=== PATIENT | female | born 1935 | race Caucasian/White ===

== ENCOUNTER 2021-07-07 10:39 | Emergency (ER) | payer OTHER ==
[~2021-07-07] VITALS: Ht 160 cm; Wt 51.7 kg
[~2021-07-07 10:39] MED LIST: AVALIDE 150-12.1 TA1 PO; DURICEF500 MG PO; PROCARDIA90 MG/BLIS PO; RELAFEN500 MG PO
== END 2021-07-07 16:25 | disposition home or self-care (01) ==
LOC: ER 10:39
DX: S01.01XA Laceration without foreign body of scalp, initial encounter (principal); W18.30XA Fall on same level, unspecified, initial encounter; Y93.89 Activity, other specified; Y92.121 Bathroom in nursing home as the place of occurrence of the external cause; Z91.013 Allergy to seafood

== ENCOUNTER 2021-09-29 23:43 | Emergency (ER) | payer OTHER ==
[~2021-09-29] VITALS: Ht 165.1 cm; Wt 49.9 kg
[2021-09-29] MEDS ORDERED: NAMENDA10 MG PO (23:53)
[2021-09-29] MEDS ORDERED: FOLIC ACID0.4 MG PO (23:54)
[2021-09-29] MEDS ORDERED: MIRTAZAPINE15 M1 PO (23:54)
[2021-09-29] MEDS ORDERED: FUROSEMIDE20 MG PO (23:54)
[2021-09-29] MEDS ORDERED: RESTORIL15 M1 PO (23:55)
[2021-09-30] MEDS ORDERED: ACETAMINOPHEN650 M2 PO (07:38)
== END 2021-09-30 07:57 | disposition home or self-care (01) ==
LOC: ER 23:43
DX: S09.90XA Unspecified injury of head, initial encounter (principal); W18.30XA Fall on same level, unspecified, initial encounter; Y93.9 Activity, unspecified; Y92.099 Unspecified place in other non-institutional residence as the place of occurrence of the external cause; Z20.822 Contact with and (suspected) exposure to COVID-19; Z91.013 Allergy to seafood

== ENCOUNTER 2022-05-26 14:59 | Inpatient (IN) | payer OTHER ==
[~2022-05-26] VITALS: Ht 167.6 cm; Wt 49.9 kg
[~2022-05-26 14:59] MED LIST changes: +ACETAMINOPHEN650 M2 PO; +FOLIC ACID0.4 MG PO; +FUROSEMIDE20 MG PO; +MIRTAZAPINE15 M1 PO; +NAMENDA10 MG PO; +RESTORIL15 M1 PO
[2022-05-26] MEDS ORDERED: BUSPIRONE HCL5 MG PO (15:20)
[2022-05-26] MEDS ORDERED: PANTOPRAZOLE SO40 MG PO (15:21)
--- NOTE | 2022-05-26 15:22 | NUR ---
PTE ES RECIBIDA EN AMBULANCIA. PTE SE OBSERVA ALERTA Y ACTIVA. PTE NO SE OBSERVA ORIENTADA EN TIEMPO Y ESPACIO. PTE VIENE POR HEMOGLOBINA EN 6.0. PTE ESTA ACOMPANADA DE HIJO.
--- NOTE | 2022-05-26 17:39 | NUR ---
500PM SE ORIENTA PTE SOBRE TX MEDICO EL CUAL REFIERE ENTENDER.SE LE EXTRAEN MUESTRAS BAJO MEDIDAS ASEPTICAS,SE CANALIZA Y SE COLOCA HL.SE LE IMER MUESTRAS PARA TUBOS PILOTOS DE 2 UNIDADES DE PRBC PENDIENTES A TRANSFUNDIR,SE INTENTA LOGRAR COMUNICACION CON BANCO DE DANIEL DE AUXILIO MUTUO Y SE ENCUENTRAN CON PROBLEMAS EN EL CUADRO DELLA SECRETARIA DE "[facility]".[employer] DE[facility] [place]. SE NOTIFICA A SUPERVISION GENERAL MS WEATHERS.SE REALIZA EKG.
--- NOTE | 2022-05-26 19:02 | NUR ---
1800 SE NOTIFICAN TUBOS PILOTOS A MR CASTRO EN BANCO DE DANIEL AUXILIO MUTUO.
[2022-06-02] MEDS ORDERED: IRBESARTAN300 MG (10:35)
[2022-06-12] MEDS ORDERED: INTEGRA PLUS C1 EACH PO (14:50)
[2022-06-12] MEDS ORDERED: COZAAR50 MG PO (14:50)
[2022-06-12] MEDS ORDERED: BUSPIRONE HCL5 MG PO (14:51)
[2022-06-12] MEDS ORDERED: NIFEDIPINE ER60 MG PO (14:51)
[2022-06-12] MEDS ORDERED: PANTOPRAZOLE SO40 MG PO (14:51)
[2022-06-12] MEDS ORDERED: FOLIC ACID1 MG PO (14:52)
[2022-06-12] MEDS ORDERED: COLACE100 MG PO (14:52)
[2022-06-12] MEDS ORDERED: B Complex PO (14:52)
== END 2022-06-12 15:04 | disposition home or self-care (01) | DRG 330 ==
LOC: ER 14:59 → SURG 19:29 → SURH 19:29
PROVIDERS: Surgery; ADMIT Internal Medicine; ATTEND Internal Medicine
PROC: 4A12X4Z Monitoring of Cardiac Electrical Activity, External Approach (ICD-10-PCS; 2022-05-26)
PROC: 30233N1 Transfusion of Nonautologous Red Blood Cells into Peripheral Vein, Percutaneous Approach (ICD-10-PCS; 2022-05-27)
PROC: 0DJD8ZZ Inspection of Lower Intestinal Tract, Via Natural or Artificial Opening Endoscopic (ICD-10-PCS; 2022-06-04)
PROC: 07BB4ZZ Excision of Mesenteric Lymphatic, Percutaneous Endoscopic Approach (ICD-10-PCS; 2022-06-05)
PROC: 0DTF4ZZ Resection of Right Large Intestine, Percutaneous Endoscopic Approach (ICD-10-PCS; principal; 2022-06-05 16:15)
DX: C18.0 Malignant neoplasm of cecum (principal); R65.10 Systemic inflammatory response syndrome (SIRS) of non-infectious origin without acute organ dysfunction; D63.0 Anemia in neoplastic disease; E87.6 Hypokalemia; G30.9 Alzheimer's disease, unspecified; F02.80 Dementia in other diseases classified elsewhere, unspecified severity, without behavioral disturbance, psychotic disturbance, mood disturbance, and anxiety; K63.89 Other specified diseases of intestine; E78.5 Hyperlipidemia, unspecified; Z74.01 Bed confinement status; Z20.822 Contact with and (suspected) exposure to COVID-19; I10 Essential (primary) hypertension; K21.9 Gastro-esophageal reflux disease without esophagitis